=== PATIENT | female | born 1950 | race Caucasian/White ===

== ENCOUNTER 2022-06-03 10:30 | Outpatient (RCR) | payer OTHER, SELFPAY ==
--- NOTE | 2022-04-02 11:48 | URNOTE ---
REceived request for prior auth for [employer] ([id number]). Per correspondance from [employer], prior authorizaiton is not required.
[2022-04-08 11:40] VITALS: BP 109/72; PULSE 87; RESP 16; TEMP 36.5; O2SAT 97
[2022-04-08] MEDS: FULVESTRANT 500MG KIT 500 MG IM (12:54)
[2022-04-22] MEDS: FULVESTRANT 500MG KIT 500 MG IM (10:46)
[2022-04-22 11:00] VITALS: BP 106/69; PULSE 73; RESP 18; TEMP 36.7; O2SAT 97
[2022-05-06 10:00] VITALS: BP 120/77; PULSE 87; RESP 16; TEMP 37.2; O2SAT 96
[2022-05-06] MEDS: FULVESTRANT 500MG KIT 500 MG IM (10:45)
[2022-06-03 10:30] VITALS: BP 128/80; PULSE 97; RESP 16; TEMP 36.8; O2SAT 96
[2022-06-03] MEDS: FULVESTRANT 500MG KIT 500 MG IM (11:01)
--- NOTE | 2022-06-26 09:19 | ONC.NURNOTE ---
Pt's daughter Elvira called to cancel pt's future appts for [employer] due to a treatment change.
== END 2022-10-05 23:59 | disposition home or self-care (01) ==
LOC: CCIC 10:30
PROVIDERS: Visit Provider Clinical Nurse Specialist
DX: Z51.11 Encounter for antineoplastic chemotherapy (principal); C56.9 Malignant neoplasm of unspecified ovary
CPT/HCPCS: 96372; 96401; 96411; J9395